=== PATIENT | male | born 1950 | race Caucasian/White ===

== ENCOUNTER 2020-07-19 05:27 | Emergency (ER) | payer OTHER ==
[~2020-07-19] VITALS: Ht 177.8 cm; Wt 93.0 kg
[2020-07-19] MEDS ORDERED: LISI20 PO (05:50)
[2020-07-19] MEDS ORDERED: MELO7.5 PO (05:51)
[2020-07-19] MEDS ORDERED: GABA100 PO (05:51)
[2020-07-19] MEDS ORDERED: TEMAZEPAM PO (05:52)
[2020-07-19] MEDS ORDERED: HYDR1TAB94 PO (08:11)
== END 2020-07-19 08:33 | disposition home or self-care (01) ==
LOC: ER 05:27
DX: S09.90XA Unspecified injury of head, initial encounter (principal); S16.1XXA Strain of muscle, fascia and tendon at neck level, initial encounter; E78.00 Pure hypercholesterolemia, unspecified; I10 Essential (primary) hypertension; F17.210 Nicotine dependence, cigarettes, uncomplicated; Z79.899 Other long term (current) drug therapy; W10.1XXA Fall (on)(from) sidewalk curb, initial encounter
CPT/HCPCS: 70450; 72125; 93005; 93010; 96374; 96375; 99284-25; J2405; J3010